=== PATIENT | male | born 1955 | race Caucasian/White ===

== ENCOUNTER 2018-02-25 22:36 | Emergency (ER) | payer MEDICAID ==
[~2018-02-25] VITALS: Ht 177.8 cm; Wt 81.8 kg
[2018-02-25 22:40] VITALS: Ht 177.8 cm; Wt 81.8 kg
[2018-02-25] MEDS ORDERED: INDOCIN25 MG PO (23:22)
[2018-02-25 23:35] VITALS: BP 124/87
== END 2018-02-25 23:36 | disposition home or self-care (01) ==
LOC: EDSEX 22:36 → D.ER 22:36
DX: M19.012 Primary osteoarthritis, left shoulder (principal); M10.071 Idiopathic gout, right ankle and foot; F17.200 Nicotine dependence, unspecified, uncomplicated